=== PATIENT | male | born 1935 | race Caucasian/White ===

== ENCOUNTER → 2018-05-11 16:39 | Outpatient (CLI) | payer MEDICARE ==
[2018-05-11 17:10] LABS: INR 1.62 (0.85-1.17); PROTIME 18.6 SECONDS (11.6-15.0)
[2018-05-11 17:21] LABS: ANION GAP 14.4 mmol/L (8-16); CALCIUM 9.3 mg/dL (8.5-10.1); CARBON DIOXIDE 22.5 mmol/L (21.0-32.0); CREATININE - SERUM 1.4 mg/dL (0.6-1.3); POTASSIUM - SERUM 3.9 mmol/L (3.5-5.1)
== END | disposition home or self-care (01) ==
LOC: D.LABREF 16:39
PROVIDERS: Internal Medicine
DX: I95.1 Orthostatic hypotension (principal); N17.9 Acute kidney failure, unspecified